=== PATIENT | male | born 1980 | race Caucasian/White ===

== ENCOUNTER 2018-06-26 20:47 | Emergency (ER) | payer MEDICAID ==
[~2018-06-26] VITALS: Ht 180.3 cm; Wt 87.5 kg
[2018-06-26 20:50] VITALS: BP_SYST 128
[2018-06-26] MEDS ORDERED: MORPHINE 4 MG/ML INJ. SYRINGE IM ONE (23:30)
[2018-06-26] MEDS ORDERED: DIPH-TET-PERTUS Vaccine 0.5 ML VIAL (ADACEL) I.M. ONE ×2 (23:30→23:53)
[2018-06-26] MEDS ORDERED: cefTRIAXone 1 GM VIAL IM ONE (23:30)
[2018-06-26] MEDS ORDERED: LIDOCAINE 1% 10 MG/ML, 20 ML MDV INJ ONE (23:45)
[2018-06-27 00:42] VITALS: BP_SYST 128
== END 2018-06-27 00:42 | disposition home or self-care (01) ==
LOC: SED 20:47
DX: S80.862A Insect bite (nonvenomous), left lower leg, initial encounter (principal); L03.116 Cellulitis of left lower limb; F17.200 Nicotine dependence, unspecified, uncomplicated; W57.XXXA Bitten or stung by nonvenomous insect and other nonvenomous arthropods, initial encounter; Y93.89 Activity, other specified; Y92.89 Other specified places as the place of occurrence of the external cause; Y99.8 Other external cause status
CPT/HCPCS: 90471; 90715; 96372; 99283; J0696; J2270